=== PATIENT | male | born 1990 ===

== ENCOUNTER 2017-06-03 21:43 | Inpatient (IN) ==
--- NOTE | 2017-06-03 22:26 | Emergency Department Note ---
Arrival - Arrival Chief Complaint: Non-Specific Stated Complaint: liver failure ED Nursing Triage Note: per [facility] pt is in liver failure from alcohol. pt presents with severe jaundice Mode of Arrival: Stretcher Limitations: No Limitations Source: Patient Time Seen by Provider: 06/03/17 22:21 - History of Present Illness HPI Narrative: Patient presents on transfer from [facility] where he presented with 3 weeks of itching and jaundice. Patient states he drinks 2 cases of beer a day with his last drink Wednesday and denies a history of alcoholic liver disease. At [place] he presented with markedly abnormal liver function studies as expected and on CT evidence of ascites but no other significant finding. As concerns the patient is most pressing complaint is his itching and states that despite turning yellow 3 weeks ago he continued his heavy drinking. At the moment he is alert and oriented 3 and in no acute medical distress Onset (ago): week(s) Review of System - Review of System 12 point system: reviewed and no additional remarkable complaints except as stated - Review of System Constitutional: Present: as per HPI Gastrointestinal: Present: as per HPI Medical,Surgical,& Family Hx - Medical History Gastrointestinal: History of: Liver Problems (liver failure) - Social History Smoking Status: Current every day smoker Frequency of Alcohol Use: Frequently Type of Drug Use: None Exam Physical Examination: GENERAL: Well developed, well nourished male in no acute distress. HEENT: Normocephalic. No trauma. Moist mucous membranes. EOMI. PERRLA. Scleral icterus noted ENT NML NECK: Supple. No adenopathy. CARDIAC: Regular. No murmurs. Heart rate 77 CHEST: Clear to auscultation. No respiratory distress. O2 sat 100 ABDOMEN: Soft. Nontender with palpable liver edge 2 fingerbreadths below the right costal margin and palpable fluid wave. Active bowel sounds. EXTREMITIES: No trauma. Normal ROM. No pedal edema. SKIN: No diaphoresis. No rash. Jaundiced NEURO: Alert. Oriented 3. Motor, sensory, vibratory intact. No asterixis. No focal deficits. Vital Signs: Vital Signs Temperature 97.7 F 06/03/17 21:52 Pulse Rate 77 06/03/17 21:52 Respiratory Rate 18 06/03/17 21:59 Blood Pressure 129/85 06/03/17 21:52 O2 Sat by Pulse Oximetry 100 06/03/17 21:52 Course - Reevaluation(s) Reevaluation #1: Patient advised of need for admission - Consultations Consultation #1: Discussed with hospitalist service who will admit for further evaluation treatment. Results - Labs CBC & BMP: 06/03/17 22:56 06/03/17 22:56 Labs: Lab per Cristy: White blood cell count 7200, hematocrit 38, creatinine 0.8, BUN 8, sodium 136, potassium 3.2, bilirubin 20, alkaline phosphatase 443, SGOT 59, SGPT 73, glucose 85, amylase 55 I have reviewed the laboratory noted from our lab the elevated lipase, bilirubin , and alkaline phosphatase. Disposition Clinical Impression: Alcoholic hepatitis, Ascites, Chronic alcoholism, Pancreatitis Case discussed with: patient Disposition: Still a Patient Condition: Guarded Time of Disposition: 02:02
[2017-06-03 23:22] LABS: Basophils # 0.1 10*3/uL (0.0-0.2); Basophils % 0.7 % (0.0-0.8); Eosinophils # 0.2 10*3/uL (0.0-0.87); Eosinophils % 2.1 % (0.00-10.9); Hematocrit 35.5 VOL% (42.0-52.0); Immature Granulocytes % 2.5 %; Immature Granulocytes Absolute 0.22 #; Lymphocytes # 1.2 10*3/uL (1.4-4.0); Lymphocytes % 13.4 % (21.2-54.2); Mean Corpuscular HGB Conc 33.8 GM/DL (32-36); Mean Corpuscular Hemoglobin 31 PG (27-34); Mean Platelet Volume 10.7 FL (9.6-12.0); Monocytes % 11.2 % (1.7-12.7); Neutrophils # 6.3 10*3/uL (1.4-7.4); Neutrophils % 70.1 % (38.7-73.9); Platelet Count 359 T/CUMM (130-400); Red Cell Distribution Width 19.1 % (9.3-17.3)
[2017-06-03 23:25] LABS: Apearance,Urine Slightly Hazy (Clear); Bacteria,Urine Occasional /HPF (Few); Bilirubin,Urine Moderate mg/dL (Negative); Blood, Urine Negative (Negative); Glucose,Urine (UA) Negative (Negative); Ketones,Urine Negative (Negative); Mucus,Urine Occasional /LPF (Occasional); Nitrite,Urine Negative (Negative); Protein,Urine Negative; RBC,Urine 1 /HPF (0-4); Urine Color Amber (Yellow); Urine Specific Gravity 1.019 (1.001-1.035); WBC,Urine 2 /HPF (0-6)
[2017-06-03 23:29] LABS: Barbiturates Screen,Urine Negative (Negative); Benzodiazepines Screen,Urine Negative (Negative); Cannabinoid Screen,Urine Positive (Negative); Opiate Screen,Urine Negative (Negative); Phencyclidine Screen,Urine Negative (Negative)
[2017-06-03 23:31] LABS: INR 1.3; PT Patient Result 13.8 SECS
[2017-06-03 23:39] LABS: Alanine Aminotransferase 55 U/L (16-61); Albumin 2.7 G/DL (3.4-5.0); Alkaline Phosphatase 456 U/L (45-117); Aspartate Amino Transferase 62 U/L (0-37); Blood Urea Nitrogen 7 MG/DL (7-18); Calcium 9.1 MG/DL (8.5-10.1); Glucose 95 MG/DL (74-106); Osmolality,Calculated 272.7 MOS/KG (273-304); Potassium 3.3 MMOL/L (3.5-5.1); Sodium 138 MMOL/L (136-145); Total Protein 6.8 G/DL (6.4-8.3)
[2017-06-03 23:41] LABS: Troponin I Only < 0.015 NG/ML (0.00-0.045)
[2017-06-03 23:43] LABS: Ammonia < 10 UMOL/L (11-32)
[2017-06-04] MEDS ORDERED: chlordiazePOXIDE 25 MG CAPSULE PO PRN (03:07)
[2017-06-04] MEDS ORDERED: SODIUM CHLORIDE 0.9% 1,000 ML IV SCH (03:30)
--- NOTE | 2017-06-04 03:39 | Hospitalist History & Physical ---
Assessment and Plan (1) Alcoholic hepatitis with ascites Status: Acute Current Visit: Yes (2) History of ETOH abuse Status: Chronic Current Visit: Yes (3) Hyperbilirubinemia Status: Acute Current Visit: Yes (4) Hypokalemia Status: Acute Assessment and plan: Plan: 1. NPO. and GI consult in am for liver failure work up. Limit IV fluids. Daily weights.Liver enzymes as well as lipase elevated. Reassess labs in am. Follow up on CT report. Paracentisis as needed. 2. ETOH and tobacco abuse cessation education provided. ETOH withdawal protocal ordered. Thiamin, Folate, and Multivitamin added. 3. Potassium protocal and reassess labs in am. 4. SCD's for DVT px. Holding anticoagulation 2 to liver failure and possible procedure. Protonix for PUD px. Current Visit: Yes History of Present Illness Chief complaint: "itching" History of present illness: Mr. Young is 26-year-old male with past medical history significant for EtOH abuse , that presented to [facility] complaining of itching and jaundice over the last 3 weeks. He was transferred to [facility] for higher level of care for markedly abnormal liver function and abnormal CT scan with ascites. Patient states that he has been drinking 2-3 cases of beer for many years and quit abruptly Wednesday because he moved back in with his significant other. Associated symptoms included itching increasing fluid in his abdomen, and jaundice eyes and skin. The patient denied shortness of breath , chest pain, abdominal pain, maxime colored stools, loose stools, melena. He denies any symptoms of ETOH withdrawal. CT scan of the abdomen results pending. Lab results revealed a T bili of 20, alkaline phosphatase 443, SGOT of 59 SGPT 73, lipase of 449, INR 1.36 hemoglobin 12 hematocrit 38.9 and a potassium of 2-3.2 creatinine 0.6 glucose was 85. He was [facility]. Home Medications Medication Instructions Recorded Confirmed Type No Known Home Medications [No 06/04/17 06/04/17 History Known Home Medications] Medical,Surgical,& Family Hx - Medical History Psychological: History of: Psychiatric/Substance Abuse Tx (hx of ETOH, Tobacco abuse. ) Gastrointestinal: History of: Liver Problems (liver failure) Hematology: No history of: Anemia, Clotting Problems Other: No history of: Anaphylaxis - Surgical History Surgical History: noncontributory - Family History Family History: Reports;: Family Hypertension - Social History Smoking Status: Current every day smoker Have you smoked in the last 12 months: Yes Time spent discussing smoking cessation with patient: 3 to 10 minutes Frequency of Alcohol Use: Frequently (Quit wednesday hx of drinking 2-3 cases of beer a day every day for years.) Type of Drug Use: None Lives With:: Children Functional capacity: independent ambulation - Constitutional Constitutional: Present: weight gain - Cardiovascular Cardiovascular: Present: edema. Absent: chest pain at rest, dyspnea, dyspnea on exertion - Respiratory Respiratory: Absent: dyspnea - Gastrointestinal Gastrointestinal: Present: bloating, jaundice. Absent: heartburn, hematemesis, hematochezia, loose stools, melena, nausea - Genitourinary Genitourinary: Present: as per HPI. Absent: difficulty urinating - Musculoskeletal Musculoskeletal: Present: as per HPI - Neurological Neurological: Absent: as per HPI, confusion, dizziness, numbness - Psychiatric Psychiatric: Absent: auditory hallucinations, visual hallucinations - Endocrine Endocrine: Present: fatigue - Hematologic/Lymphatic Hematologic/Lymphatic: Absent: easy bleeding, easy bruising Exam - Constitutional Vitals: Period Temp Pulse Resp BP Sys/Prajapati Pulse Ox Last 24 Hr 97.7 F-97.7 F 77-77 18-18 129-129/85-85 100 General appearance: normal weight - Head Head exam: Present: normocephalic, atraumatic - Eye Eye exam: Present: EOMI, scleral icterus Pupils: Present: YULIANA, normal accommodation - ENT ENT exam: Present: normal exam - Neck Neck exam: Present: normal inspection - Respiratory Respiratory exam: Present: clear to auscultation bilaterally - Cardiovascular Cardiovascular exam: Present: regular rate and rhythm - GI/Abdominal GI/Abdominal exam: Present: normal bowel sounds, ascites, other (fluid wave) - Extremities Exam Extremities exam: Present: normal capillary refill, full ROM, edema (mild lower extremity edema. ) Results - Labs CBC & BMP: 06/03/17 22:56 06/03/17 22:56 Quality Measures - VTE Contraindication to Pharmacological VTE Prophylaxis: High Risk of Bleeding
[2017-06-04 06:31] LABS: Apearance,Urine CLEAR (Clear); Bilirubin,Urine Moderate mg/dL (Negative); Blood, Urine Negative (Negative); Glucose,Urine (UA) Negative (Negative); Ketones,Urine Negative (Negative); Mucus,Urine Occasional /LPF (Occasional); Nitrite,Urine Negative (Negative); Protein,Urine Negative; RBC,Urine <1 /HPF (0-4); Squamous Epithelial Cell,Urine Occasional /HPF (0-10); Urine Color Amber (Yellow); Urine Specific Gravity 1.034 (1.001-1.035); WBC,Urine 1 /HPF (0-6)
[2017-06-04] MEDS: POTASSIUM CHLORIDE RIDER 10 MEQ in PREMIX 1 EACH IV PRN ×2 (06:57→09:05)
[2017-06-04 07:49] LABS: Basophils # 0.1 10*3/uL (0.0-0.2); Basophils % 0.6 % (0.0-0.8); Eosinophils # 0.3 10*3/uL (0.0-0.87); Eosinophils % 3.4 % (0.00-10.9); Hematocrit 33.1 VOL% (42.0-52.0); Hemoglobin 11.6 GM/DL (14.0-18.0); Immature Granulocytes % 2.3 %; Immature Granulocytes Absolute 0.18 #; Lymphocytes # 1.2 10*3/uL (1.4-4.0); Mean Corpuscular Hemoglobin 31 PG (27-34); Mean Corpuscular Volume 89.7 FL (87-102); Mean Platelet Volume 10.4 FL (9.6-12.0); Monocytes % 13.2 % (1.7-12.7); Neutrophils # 5.2 10*3/uL (1.4-7.4); Neutrophils % 65.5 % (38.7-73.9); Platelet Count 343 T/CUMM (130-400); Red Blood Count 3.69 MC/CUMM (3.8-5.5); Red Cell Distribution Width 18.6 % (9.3-17.3); White Blood Count 7.9 T/CUMM (4-12)
--- NOTE | 2017-06-04 07:57 | CT Report ---
CT abdomen pelvis Indication: Painless jaundice Comparison: 07 April 2017 Technique: Axial CT imaging of the abdomen and pelvis is performed with intravenous contrast. Contrast dose is 100 cc of Omnipaque 350. Findings: Cardiac and lung bases are within normal limits CT abdomen: There is severely distended the biliary ducts both intra and extrahepatic extending all the way to the ampulla. No distinct pancreatic mass is identified at this location. Pancreas otherwise appears normal and no pancreatic duct dilation is seen. The spleen and adrenal glands are normal in size and enhancement. No evidence of focal lesion is demonstrated in these solid organs. Kidneys are normal in size and enhancement. No evidence of hydronephrosis or nephrolithiasis is seen. The bowel caliber is normal and no wall thickening or adjacent inflammatory change is seen. No evidence of free fluid or free air is present. CT pelvis: The pelvic bowel appears within normal limits. Bladder shows no evidence of abnormality. The pelvic organs show no evidence of abnormality Impression: Severely distended the intrahepatic and extrahepatic biliary ducts extending to ampulla. No distinct lesion is seen and could indicate occult malignancy, stricture versus nonradiopaque calculus. This CT exam was performed using one or more the following dose reduction techniques: Automated exposure control, adjustment of the MA and/or KV according to patient size, or use of iterative reconstruction technique. PROCEDURE INTERPRETED AT [facility] DEPARTMENT OF RADIOLOGY Final Report Signed by: Dr. Martell Hendricks
[2017-06-04 08:30] LABS: Albumin 2.4 G/DL (3.4-5.0); Calcium 9.5 MG/DL (8.5-10.1); Potassium 3.6 MMOL/L (3.5-5.1); Total Protein 6.4 G/DL (6.4-8.3)
[2017-06-04 08:34] LABS: Bilirubin,Total 17.8 MG/DL (0.2-1.0)
[2017-06-04 08:40] LABS: Folate 7.6 NG/ML (5.4-24.0)
[2017-06-04] MEDS ORDERED: FOLIC ACID 1 MG TABLET PO SCH (09:00)
[2017-06-04] MEDS ORDERED: MULTIVITAMIN (CENTRUM) TABLET PO SCH (09:00)
[2017-06-04] MEDS ORDERED: THIAMINE 100 MG TABLET PO SCH (09:00)
[2017-06-04] MEDS ORDERED: PANTOPRAZOLE 40 MG TABLET PO SCH (09:00)
--- NOTE | 2017-06-04 10:01 | Gastrointestinal Consult Note ---
Assessment and Plan (1) Hyperbilirubinemia Status: Acute Assessment and plan: 06/04-1 month history of itching and jaundice with long-term history of heavy alcohol use daily with findings of elevated bilirubin and transaminases as well as CT findings of ductal dilatation noted as below. MRCP is pending for this morning. Plan an addendum to follow Dr. Fulton. Current Visit: Yes History of Present Illness Chief complaint: Elevated bilirubin History of present illness: Mr. Young is a 26 year old male who was admitted to the hospital from [facility] after presenting at the clinic with itching. Patient is not a very good historian therefore information is also obtained from chart review. Patient states that over the last month he had onset of itching and yellowing of his skin and eyes which is worsened. He presented to the [facility] for evaluation and at that time he was found to have an elevated bilirubin and transaminases and was referred to our facility for further evaluation. Patient states that he has a long-term history of heavy alcohol use. Patient is very vague regarding the amount of alcohol he drinks on a daily basis however states it is possibly 2-3 cases a day of beer. He states that he also uses tobacco products. Patient states that basically he drinks as many beers as he can on a daily basis until he "passes out". He states he is done this since his early teenage years. Patient denies any abdominal pain, nausea or vomiting. He denies any other associated symptoms. On admission, he had a CT of the abdomen with contrast which showed severely distended intrahepatic and extrahepatic biliary ducts extending to the ampulla with no distinct lesion or mass seen. Bilirubin was noted to be elevated at 19.5 with an AST of 62 and alkaline phosphatase of 456. Ammonia levels were less than 10. Lipase on admission was 449 which is now trended down to 347. He has normal vitamin B12 and folate levels. He was noted to be positive for marijuana on his urine drug screen. Albumin is at 2.7. H&H is 33. INR 1.3. He does not recall being told in the past that he has problems with his liver. Home Medications Medication Instructions Recorded Confirmed Type No Known Home Medications [No 06/04/17 06/04/17 History Known Home Medications] Allergies Allergy/AdvReac Type Severity Reaction Status Date / Time No Known Allergies Allergy Verified 06/04/17 04:27 Medical,Surgical,& Family Hx - Medical History Psychological: History of: Psychiatric/Substance Abuse Tx (hx of ETOH, Tobacco abuse. ) Gastrointestinal: History of: GERD, Liver Problems (liver failure) Hematology: No history of: Anemia, Clotting Problems Other: No history of: Anaphylaxis - Family History Family History: Reports;: Family Hypertension - Social History Smoking Status: Current every day smoker Frequency of Alcohol Use: Frequently Type of Drug Use: None 12 point system: reviewed and no additional remarkable complaints except as stated - Constitutional Constitutional: Present: as per HPI - EENT Eyes: Present: as per HPI Ears: Present: as per HPI Nose, mouth and throat: Present: as per HPI - Cardiovascular Cardiovascular: Present: as per HPI - Respiratory Respiratory: Present: as per HPI - Gastrointestinal Gastrointestinal: Present: as per HPI, jaundice - Genitourinary Genitourinary: Present: as per HPI - Musculoskeletal Musculoskeletal: Present: as per HPI - Neurological Neurological: Present: as per HPI - Psychiatric Psychiatric: Present: as per HPI - Endocrine Endocrine: Present: as per HPI - Hematologic/Lymphatic Hematologic/Lymphatic: Present: as per HPI Exam - Constitutional Vitals: Period Temp Pulse Resp BP Sys/Prajapati Pulse Ox Last 24 Hr 97.2 F-97.7 F 77-115 18-20 122-130/68-85 98-100 General appearance: normal weight, no acute distress - Head Head exam: Present: normal inspection, normocephalic - Eye Eye exam: Present: scleral icterus, other (Lids and identified unremarkable) - ENT ENT exam: Present: normal exam, normal oropharynx - Neck Neck exam: Present: normal inspection - Respiratory Respiratory exam: Present: clear to auscultation bilaterally. Absent: rales, rhonchi, wheezes - Cardiovascular Cardiovascular exam: Present: regular rate and rhythm. Absent: diastolic murmur , JVD, systolic murmur - GI/Abdominal GI/Abdominal exam: Present: normal bowel sounds, soft. Absent: ascites, distended, mass, organomegaly, tenderness - Extremities Exam Extremities exam: Present: normal inspection, full ROM - Back Exam Back exam: Present: normal inspection - Neurological Exam Neurological exam: Present: alert, oriented X3 - Psychiatric Psychiatric exam: Present: flat affect - Skin Skin exam: Present: other (Jaundice) Results - Labs CBC & BMP: 06/04/17 07:37 06/04/17 07:37 Lab Results: I have reviewed the past 24 hour labs - Diagnostic Findings Procedure: CT Abdomen and Pelvis: report reviewed by me Quality Measures - VTE Contraindication to Pharmacological VTE Prophylaxis: High Risk of Bleeding
--- NOTE | 2017-06-04 13:46 | Magnetic Resonance Report ---
Exam: Magnetic resonance cholangiopancreatography Exam date: June 04, 2017 at 1312 hours Indication: Abdominal pain, ductal dilatation Comparison: MR abdomen dated March 25, 2017 at 1010 hours Technique: Multiplanar, multisequence magnetic resonance images of the abdomen were performed without the use of intravenous contrast. Findings: The liver, spleen, pancreas, bilateral adrenal glands and kidneys appear grossly unremarkable in size, appearance and signal. Visualized portions of bowel are within normal limits. Marrow signal throughout the visualized spine is within normal limits. Gallbladder is surgically absent. Marked dilatation of the intra and extrahepatic ducts with tortuosity proximally at the confluence. Multiple intraluminal filling defects within the intra and extrahepatic ducts. 1.1 cm stone distally at the ampulla Impression: Obstructing choledocholithiasis PROCEDURE INTERPRETED AT [facility] DEPARTMENT OF RADIOLOGY Final Report Signed by: Jeff Burton
[2017-06-04] MEDS ORDERED: LORazepam 2 MG/1 ML VIAL IV PRN (15:10)
[2017-06-04] MEDS: LEVOFLOXACIN INJ 500 MG in PREMIX 1 EACH IV SCH (16:54)
[2017-06-04] MEDS: diphenhydrAMINE CAP 25 MG CAPSULE PO PRN (16:55)
[2017-06-05 06:28] LABS: Basophils # 0.1 10*3/uL (0.0-0.2); Basophils % 0.6 % (0.0-0.8); Eosinophils # 0.3 10*3/uL (0.0-0.87); Hemoglobin 11.4 GM/DL (14.0-18.0); Immature Granulocytes % 2.9 %; Immature Granulocytes Absolute 0.23 #; Lymphocytes # 1.1 10*3/uL (1.4-4.0); Lymphocytes % 14.3 % (21.2-54.2); Mean Corpuscular HGB Conc 33.5 GM/DL (32-36); Mean Corpuscular Hemoglobin 31 PG (27-34); Mean Corpuscular Volume 91.6 FL (87-102); Mean Platelet Volume 11.1 FL (9.6-12.0); Monocytes # 1.1 10*3/uL (0.11-0.8); Monocytes % 13.2 % (1.7-12.7); Neutrophils # 5.2 10*3/uL (1.4-7.4); Platelet Count 367 T/CUMM (130-400); Red Blood Count 3.71 MC/CUMM (3.8-5.5); Red Cell Distribution Width 18.4 % (9.3-17.3)
[2017-06-05 07:01] LABS: Albumin 2.3 G/DL (3.4-5.0); Calcium 9.2 MG/DL (8.5-10.1); Potassium 3.5 MMOL/L (3.5-5.1); Total Protein 6.2 G/DL (6.4-8.3)
[2017-06-05 07:04] LABS: Bilirubin,Total 18.3 MG/DL (0.2-1.0)
[2017-06-05] MEDS ORDERED: FOLIC ACID 5 MG/1 ML VIAL IV SCH (09:00)
[2017-06-05] MEDS: PANTOPRAZOLE 40 MG VIAL IV SCH (09:07)
[2017-06-05] MEDS: THIAMINE 200 MG/2 ML VIAL IV SCH (09:08)
[2017-06-05] MEDS: FOLIC ACID INJ 1 MG in SYRINGE 1 EACH IV SCH (10:55)
--- NOTE | 2017-06-05 11:22 | General Surgery Consult Note ---
Assessment and Plan (1) Cholelithiasis with choledocholithiasis Status: Acute Assessment and plan: This patient will be best served with ERCP before any operative intervention on his gallbladder. It looks like diffuse dilation of his bile duct on the MRI and there is no abarrent junction of his bile duct and his pancreatic duct but can be seen with choledochal cyst. There is also no focal area of dilation this suggests choledochal cyst on the MRI MRCP. It certainly seems like routine choledocholithiasis but this patient is very young to have such advanced disease. We will see what the bile duct looks like on the ERCP but hopefully this is straightforward cholelithiasis and choledocholithiasis and if so will be treated with ERCP followed by interval laparoscopic cholecystectomy. Current Visit: Yes History of Present Illness Chief complaint: Painless jaundice History of present illness: Mr. Young is a 26 year old male who is a very poor historian and gives me very little history admitted with painless jaundice and found to have choledocholithiasis and cholelithiasis on his MRI MRCP. Very little is obtained from talking to the patient and he stares blankly at the wall and asking questions. Home Medications Medication Instructions Recorded Confirmed Type No Known Home Medications [No 06/04/17 06/04/17 History Known Home Medications] Allergies Allergy/AdvReac Type Severity Reaction Status Date / Time No Known Allergies Allergy Verified 06/04/17 04:27 Medical,Surgical,& Family Hx - Medical History Psychological: History of: Psychiatric/Substance Abuse Tx (hx of ETOH, Tobacco abuse. ) Gastrointestinal: History of: GERD, Liver Problems (liver failure) Hematology: No history of: Anemia, Clotting Problems Other: No history of: Anaphylaxis - Family History Family History: Reports;: Family Hypertension - Social History Smoking Status: Current every day smoker Frequency of Alcohol Use: Frequently Type of Drug Use: None - Constitutional Constitutional: Present: as per HPI - EENT Nose, mouth and throat: Present: as per HPI - Cardiovascular Cardiovascular: Present: as per HPI - Respiratory Respiratory: Present: as per HPI - Gastrointestinal Gastrointestinal: Present: as per HPI - Genitourinary Genitourinary: Present: as per HPI - Musculoskeletal Musculoskeletal: Present: as per HPI - Neurological Neurological: Present: as per HPI - Endocrine Endocrine: Present: as per HPI Hematologic/Lymphatic: Present: as per HPI Exam - Constitutional Vitals: Period Temp Pulse Resp BP Sys/Prajapati Pulse Ox Last 24 Hr 97.0 F-98.0 F 69-93 12-20 112-119/53-70 95-100 General appearance: normal weight, no acute distress - Head Head exam: Present: normal inspection, normocephalic - Eye Eye exam: Present: EOMI, scleral icterus - ENT ENT exam: Present: normal exam Mouth exam: Present: normal external inspection, normal voice - Neck Neck exam: Present: normal inspection, trachea midline - Respiratory Respiratory exam: Present: clear to auscultation bilaterally. Absent: accessory muscle use, chest wall tenderness - Cardiovascular Cardiovascular exam: Present: RRR. Absent: systolic murmur, tachycardia - GI/Abdominal GI/Abdominal exam: Present: normal bowel sounds, soft. Absent: tenderness, rebound - Extremities Exam Extremities exam: Present: normal inspection, normal capillary refill - Back Exam Back exam: Present: normal inspection - Neurological Exam Neurological exam: Present: alert Speech: Present: normal - Skin Skin exam: Present: normal color, warm Quality Measures - VTE Contraindication to Pharmacological VTE Prophylaxis: High Risk of Bleeding Results - Labs CBC & BMP: 06/05/17 05:31 06/05/17 05:31 - Diagnostic Findings Procedure: CT Abdomen and Pelvis: image reviewed by me, report reviewed by me, MRI: image reviewed by me, report reviewed by me (Multiple common bile duct stone) Specialty Discharge - Follow Up or Referrals
--- NOTE | 2017-06-05 13:02 | Event Note ---
Chief complaint abdominal pain Patient is hemodynamically stable and appears comfortable today. MRI was reviewed and findings are suspicious for choledocholithiasis and cholelithiasis. He is afebrile at this point and appears comfortable but will plan ERCP on Wednesday. Dr. Matt is seen him and plans cholecystectomy to follow. Continue Levaquin to reduce the risk of cholangitis. There is no evidence of DTs or alcohol withdrawal at this time. Review of systems he denies any shortness of breath or chest pain On exam: Vital signs are stable Lids conjunctiva is unremarkable Oropharynx is benign Lungs clear to auscultation no respiratory distress Heart regular rate and rhythm no murmur no edema Abdomen is soft nondistended nontender no masses no hepatosplenomegaly Extremities no clubbing cyanosis or edema all 4 extremities. Recommendations: 1. Continue IV Levaquin analgesia as required plan ERCP with possible sphincterotomy on Wednesday. Continue to be aware of possible DTs alcohol withdrawal with his history of alcohol intake.
--- NOTE | 2017-06-05 16:44 | Hospitalist Progress Note ---
Hospitalist: Subjective Interval history: Patient has no complaints. He denies any belly pain, n/v. Exam - Constitutional Vitals: Period Temp Pulse Resp BP Sys/Prajapati Pulse Ox Last 24 Hr 97.0 F-98.0 F 69-75 17-20 112-119/53-71 98-100 General appearance: no acute distress, over weight - Head Head exam: Present: normal inspection - Eye Eye exam: Present: EOMI, scleral icterus Pupils: Present: YULIANA - ENT ENT exam: Present: normal exam - Neck Neck exam: Present: normal inspection - Respiratory Respiratory exam: Present: clear to auscultation bilaterally. Absent: rales, rhonchi, wheezes - Cardiovascular Cardiovascular exam: Present: regular rate and rhythm - GI/Abdominal GI/Abdominal exam: Present: normal bowel sounds, soft. Absent: tenderness - Extremities Exam Extremities exam: Absent: edema (excoriations from scratching) - Neurological Exam Neurological exam: Present: alert, oriented X3 - Psychiatric Psychiatric exam: Present: normal affect, normal mood - Skin Skin exam: Present: other (jaundice) Results - Labs CBC & BMP: 06/05/17 05:31 06/05/17 05:31 - Impressions Active Issues: 1. Acute abdominal pain, improving 2. Obstructive Jaundice 3. Cholelithiasis with choledocholithiasis 4. Elevated LFTs, cholestatic pattern 5. h/o ETOH dependence, no s/s of acute withdrawals 6. h/o tobacco use: counselled 7. Pruritis Plan: continue current care; being followed by GI and surgery. Noted plan for ERCP with possible sphincteromy on Wednesday, then cholecystectomy. Continue levaquin. [place] for pruritis Quality Measures - VTE Contraindication to Pharmacological VTE Prophylaxis: High Risk of Bleeding Specialty Discharge - Follow Up or Referrals
[2017-06-05] MEDS: LEVOFLOXACIN INJ 500 MG in PREMIX 1 EACH IV SCH (18:20)
[2017-06-06 06:22] LABS: Basophils # 0.1 10*3/uL (0.0-0.2); Basophils % 1.1 % (0.0-0.8); Eosinophils # 0.2 10*3/uL (0.0-0.87); Eosinophils % 3.3 % (0.00-10.9); Hematocrit 33.8 VOL% (42.0-52.0); Hemoglobin 11.6 GM/DL (14.0-18.0); Immature Granulocytes % 2.4 %; Immature Granulocytes Absolute 0.17 #; Lymphocytes % 14.6 % (21.2-54.2); Mean Corpuscular HGB Conc 34.3 GM/DL (32-36); Mean Corpuscular Hemoglobin 31 PG (27-34); Mean Corpuscular Volume 90.4 FL (87-102); Mean Platelet Volume 11.3 FL (9.6-12.0); Monocytes # 0.8 10*3/uL (0.11-0.8); Neutrophils # 4.7 10*3/uL (1.4-7.4); Neutrophils % 66.6 % (38.7-73.9); Platelet Count 394 T/CUMM (130-400); Red Blood Count 3.74 MC/CUMM (3.8-5.5); Red Cell Distribution Width 18.1 % (9.3-17.3)
[2017-06-06 06:57] LABS: Albumin 2.2 G/DL (3.4-5.0); Calcium 9.6 MG/DL (8.5-10.1); Potassium 3.5 MMOL/L (3.5-5.1)
[2017-06-06 07:14] LABS: Bilirubin,Total 17.4 MG/DL (0.2-1.0)
[2017-06-06] MEDS: THIAMINE 200 MG/2 ML VIAL IV SCH (09:03)
[2017-06-06] MEDS: CHOLESTYRAMINE 4 GM PACK PO SCH (09:03)
[2017-06-06] MEDS: PANTOPRAZOLE 40 MG VIAL IV SCH (09:03)
[2017-06-06] MEDS: FOLIC ACID INJ 1 MG in SYRINGE 1 EACH IV SCH (09:04)
--- NOTE | 2017-06-06 10:55 | Hospitalist Progress Note ---
Assessment and Plan (1) Jaundice Status: Acute Assessment and plan: Continue workup with ERCP Current Visit: Yes (2) Alcoholic hepatitis with ascites Status: Acute Current Visit: Yes (3) History of ETOH abuse Status: Chronic Assessment and plan: Watch for DT withdrawal symptoms. Current Visit: Yes (4) Hyperbilirubinemia Status: Acute Current Visit: Yes Hospitalist: Subjective Interval history: Patient sent up in chair resting comfortably. He denies any pain no abdominal pain no shortness of breath or chest pain. Remains jaundice. He is scheduled for ERCP on Wednesday. He has been hemodynamically stable and has been metabolically stable Exam - Constitutional Vitals: Period Temp Pulse Resp BP Sys/Prajapati Pulse Ox Last 24 Hr 97.0 F-98.2 F 64-76 17-18 111-120/59-86 100-100 General appearance: normal weight - Head Head exam: Present: normal inspection - Eye Eye exam: Present: scleral icterus Pupils: Present: YULIANA - Neck Neck exam: Present: normal inspection - Respiratory Respiratory exam: Present: clear to auscultation bilaterally - Cardiovascular Cardiovascular exam: Present: regular rate and rhythm - GI/Abdominal GI/Abdominal exam: Present: normal bowel sounds - Extremities Exam Extremities exam: Present: normal inspection - Neurological Exam Neurological exam: Present: alert, oriented X3 - Psychiatric Psychiatric exam: Present: normal affect - Skin Skin exam: Present: other (Jaundice) Results - Labs CBC & BMP: 06/06/17 05:28 06/06/17 05:28 Quality Measures - VTE Contraindication to Pharmacological VTE Prophylaxis: High Risk of Bleeding Specialty Discharge - Follow Up or Referrals
--- NOTE | 2017-06-06 11:23 | General Surgery Progress Note ---
Assessment and Plan (1) Cholelithiasis with choledocholithiasis Status: Acute Assessment and plan: ERCP scheduled for tomorrow. Laparoscopic cholecystectomy will be done following ERCP Current Visit: Yes Subjective Patient reports: Present: no new complaints Exam - Constitutional Vitals: Period Temp Pulse Resp BP Sys/Prajapati Pulse Ox Last 24 Hr 97.0 F-98.2 F 64-76 17-18 111-120/59-86 100-100 General appearance: no acute distress, over weight - Head Head exam: Present: normal inspection - Eye Eye exam: Present: EOMI, scleral icterus Pupils: Present: YULIANA - ENT ENT exam: Present: normal exam Mouth exam: Present: normal external inspection, normal voice - Neck Neck exam: Present: normal inspection, trachea midline - Respiratory Respiratory exam: Absent: accessory muscle use, prolonged expiratory phase - Cardiovascular Cardiovascular exam: Absent: irregular rhythm, tachycardia - GI/Abdominal GI/Abdominal exam: Absent: tenderness - Extremities Exam Extremities exam: Present: normal inspection - Neurological Exam Neurological exam: Present: alert Speech: Present: normal - Skin Skin exam: Present: warm Results - Labs CBC & BMP: 06/06/17 05:28 06/06/17 05:28 Quality Measures - VTE Contraindication to Pharmacological VTE Prophylaxis: High Risk of Bleeding Specialty Discharge - Follow Up or Referrals
--- NOTE | 2017-06-06 13:20 | Event Note ---
Chief complaint gallstone pancreatitis and alcoholic pancreatitis Clinically unchanged no complaints of pain today no fever chills. Bilirubin significantly elevated at 17 MRI has been again discussed with him will proceed with ERCP and probable sphincterotomy in a.m. Risks benefits and alternatives have been reviewed. Review of systems denies any shortness of breath or chest pain. On exam he is afebrile vital signs are stable sclerae icteric lids conjunctiva was unremarkable pharynx is benign neck is supple no JVD no thyromegaly or supraclavicular x-ray noted lungs clear to alteration of respiratory distress heart regular rate and rhythm no murmur no edema abdomen is soft mildly tender no rebound or guarding bowel sounds normoactive extremities no clubbing cyanosis or edema. Recommendations proceed with ERCP and suspected sphincterotomy in a.m. with cholecystectomy to follow. No evidence of DTs or alcohol withdrawal so far.
[2017-06-06] MEDS: LEVOFLOXACIN INJ 500 MG in PREMIX 1 EACH IV SCH (17:10)
[2017-06-06] MEDS ORDERED: LORazepam 1 MG TABLET PO SCH (21:00)
[2017-06-06] MEDS: diphenhydrAMINE CAP 25 MG CAPSULE PO PRN (21:26)
[2017-06-07 06:34] LABS: Basophils # 0.1 10*3/uL (0.0-0.2); Eosinophils # 0.3 10*3/uL (0.0-0.87); Eosinophils % 4.2 % (0.00-10.9); Hematocrit 38.6 VOL% (42.0-52.0); Hemoglobin 12.9 GM/DL (14.0-18.0); Immature Granulocytes Absolute 0.23 #; Lymphocytes # 1.5 10*3/uL (1.4-4.0); Lymphocytes % 20.2 % (21.2-54.2); Mean Corpuscular HGB Conc 33.4 GM/DL (32-36); Mean Corpuscular Hemoglobin 31 PG (27-34); Mean Corpuscular Volume 91.9 FL (87-102); Mean Platelet Volume 11.2 FL (9.6-12.0); Monocytes # 0.9 10*3/uL (0.11-0.8); Neutrophils # 4.6 10*3/uL (1.4-7.4); Neutrophils % 59.6 % (38.7-73.9); Platelet Count 449 T/CUMM (130-400); Red Cell Distribution Width 17.8 % (9.3-17.3); White Blood Count 7.6 T/CUMM (4-12)
[2017-06-07 06:50] LABS: INR 1.3; Partial Thromboplastin Time 30.3 SECS (0-40)
[2017-06-07 07:07] LABS: Albumin 2.5 G/DL (3.4-5.0); Calcium 9.9 MG/DL (8.5-10.1); Osmolality,Calculated 275.4 MOS/KG (273-304); Potassium 3.8 MMOL/L (3.5-5.1); Total Protein 6.8 G/DL (6.4-8.3)
[2017-06-07 07:15] LABS: Bilirubin,Total 18.2 MG/DL (0.2-1.0)
--- NOTE | 2017-06-07 07:28 | General Surgery Progress Note ---
Assessment and Plan (1) Cholelithiasis with choledocholithiasis Status: Acute Assessment and plan: ERCP scheduled for today. Laparoscopic cholecystectomy will be done following ERCP Current Visit: Yes Subjective Patient reports: Present: no new complaints Exam - Constitutional Vitals: Period Temp Pulse Resp BP Sys/Prajapati Pulse Ox Last 24 Hr 97.5 F-98.8 F 58-77 17-18 90-118/47-68 95-100 General appearance: no acute distress, over weight - Head Head exam: Present: normal inspection - Eye Eye exam: Present: EOMI, scleral icterus - ENT Mouth exam: Present: normal external inspection, normal voice - Neck Neck exam: Present: normal inspection, trachea midline - Respiratory Respiratory exam: Absent: accessory muscle use, prolonged expiratory phase - Cardiovascular Cardiovascular exam: Absent: tachycardia - Extremities Exam Extremities exam: Present: normal inspection - Neurological Exam Neurological exam: Present: alert Speech: Present: normal Results - Labs CBC & BMP: 06/07/17 05:38 06/07/17 05:38 Quality Measures - VTE Contraindication to Pharmacological VTE Prophylaxis: High Risk of Bleeding Specialty Discharge - Follow Up or Referrals
[2017-06-07] MEDS: CHOLESTYRAMINE 4 GM PACK PO SCH (08:46)
[2017-06-07] MEDS: THIAMINE 200 MG/2 ML VIAL IV SCH (09:41)
[2017-06-07] MEDS: PANTOPRAZOLE 40 MG VIAL IV SCH (09:41)
[2017-06-07] MEDS: FOLIC ACID INJ 1 MG in SYRINGE 1 EACH IV SCH (09:41)
[2017-06-07] MEDS ORDERED: fentaNYL 100 MCG/2 ML VIAL ONE (11:33)
[2017-06-07] MEDS ORDERED: MIDAZOLAM 2 MG/2 ML VIAL ONE (11:33)
[2017-06-07] MEDS ORDERED: ONDANSETRON 4 MG/2 ML VIAL ONE (11:36)
[2017-06-07] MEDS ORDERED: PROPOFOL 200 MG/20 ML VIAL IV ONE (11:36)
--- NOTE | 2017-06-07 12:01 | Operative Note ---
Date of procedure: 06/07/17 Pre-op diagnosis: Choledocholithiasis Procedure: Endoscopic retrograde cholangiopancreatography with sphincterotomy and balloon stone extraction 26-year-old male with MRCP suggestive of choledocholithiasis and cholelithiasis now for ERCP to further evaluate. Informed consent was obtained for the patient He was sedated with general anesthesia per anesthesia protocol. Patient was placed in prone position the Olympus duodenum scope was inserted blindly into the esophagus subsequently advanced under direct vision through the esophagus no clear varices were seen. Stomach was normal. Pylorus was normal ampulla is prominent with suspected impacted stone. The sphincterotome was utilized and we were able to selectively cannulate the common bile duct which revealed distal stones are suspected. There is marked dilatation of the common bile duct common hepatic duct and intrahepatic radicles. The cystic duct appears patent and cholelithiasis was observed. Subsequent was elected to proceed with sphincterotomy and a 10 mm sphincterotomy was performed without difficulty good hemostasis. Subsequent balloon cath was inserted into the biliary tree advanced the region of the aaron hepatis inflated to 12 mm 2 and port of the duodenum with removal of stone fragments. No residual stones were observed for the procedure was terminated. Patient discharge recovery in good condition Postop diagnosis: 1. Choledocholithiasis status post successful ERCP sphincterotomy 2. Cholelithiasis proceed with cholecystectomy per surgery. Anesthesia: none (General) Surgeon / Physician: Atif Fulton Estimated blood loss: none Specimens: none sent Condition: stable Disposition: post procedure unit Results - Labs CBC & BMP: 06/07/17 05:38 06/07/17 05:38 Discharge Plan - Discharge Medications No Action No Known Home Medications [No Known Home Medications] - Follow Up or Referral - Forms/Instructions Instructions: Abuse of Alcohol (DC), Ascites (DC)
--- NOTE | 2017-06-07 12:04 | Hospitalist Progress Note ---
Assessment and Plan (1) History of ETOH abuse Status: Chronic Assessment and plan: 1)alcoholism- no sign of DTs at this time. Use Librium or ativan prn. on folate and thiamine. 2)cholecystitis, choledocholithiasis and cholelithiasis- ERCP with sphincterotomy today then lap dania. 3)hypokalemia- replaced. Current Visit: Yes (2) Alcoholic hepatitis with ascites Status: Acute Current Visit: Yes (3) Hyperbilirubinemia Status: Acute Current Visit: Yes (4) Hypokalemia Status: Acute Current Visit: Yes (5) Cholelithiasis with choledocholithiasis Status: Acute Current Visit: Yes (6) Jaundice Status: Acute Current Visit: Yes Hospitalist: Subjective Interval history: Mr Young did not talk to me much when I interviewed him as he was watching something on his phone. He denied having questions or concerns. Exam - Constitutional Vitals: Period Temp Pulse Resp BP Sys/Prajapati Pulse Ox Last 24 Hr 97.5 F-98.8 F 54-77 17-19 90-121/47-60 95-100 General appearance: no acute distress, over weight - Eye Eye exam: Present: EOMI. Absent: scleral icterus - Respiratory Respiratory exam: Present: clear to auscultation bilaterally - Cardiovascular Cardiovascular exam: Present: regular rate and rhythm - GI/Abdominal GI/Abdominal exam: Present: normal bowel sounds, soft - Extremities Exam Extremities exam: Absent: edema - Neurological Exam Neurological exam: Present: alert, oriented X3 Results - Labs CBC & BMP: 06/07/17 05:38 06/07/17 05:38 Lab Results: I have reviewed the past 24 hour labs Quality Measures - VTE Contraindication to Pharmacological VTE Prophylaxis: High Risk of Bleeding Specialty Discharge - Follow Up or Referrals
--- NOTE | 2017-06-07 12:08 | Anesthesia Post-Op ---
Anesthesia Post OP - Post Ansesthetic Evaluation Patient seen in post op: Yes Resp: within normal limits CV: within normal limits Mental: within normal limits Temp: within normal limits [id number]: within normal limits Nausea and Vomiting: within normal limits Pain: within normal limits
[2017-06-07] MEDS ORDERED: GLUCAGON 1 MG VIAL ONE (12:22)
--- NOTE | 2017-06-07 12:54 | Fluoroscopy Report ---
FL fluoroscopy <1hr Indication: ERCP Comparison: None Technique: 10 intraoperative fluoroscopic images of the abdomen were submitted. Fluoroscopy time 4.3 minutes. Findings: Images submitted during ERCP procedure. Contrast demonstrated within dilated common and intrahepatic ducts. Please see operative report for details. IMPRESSION: As above. PROCEDURE INTERPRETED AT [facility] DEPARTMENT OF RADIOLOGY Final Report Signed by: Dr Jerson Canela
[2017-06-07] MEDS: LEVOFLOXACIN INJ 500 MG in PREMIX 1 EACH IV SCH (17:12)
[2017-06-08] MEDS ORDERED: FAMOTIDINE 20 MG TABLET PO ONE (07:00)
[2017-06-08] MEDS ORDERED: DIAZEPAM 5 MG TABLET PO ONE (07:00)
--- NOTE | 2017-06-08 07:24 | Event Note ---
Events of yesterday noted. Successful ERCP with sphincterotomy. Patient has no evidence of pancreatitis on exam. Plan for laparoscopic versus open cholecystectomy today. I have discussed the risks, benefits, and alternatives of the operation with the patient and his family, and the expected outcomes have been reviewed. In particular, I discussed the risk of bleeding, infection , hernias of the abdominal wall, injury to the intestines or liver, pancreatitis , dropped or retained stones in the abdomen, bile leak, and bile duct injury. The patient's questions have been answered.
[2017-06-08] MEDS: THIAMINE 200 MG/2 ML VIAL IV SCH (09:44)
[2017-06-08] MEDS: PANTOPRAZOLE 40 MG VIAL IV SCH (09:44)
[2017-06-08] MEDS: CHOLESTYRAMINE 4 GM PACK PO SCH (09:46)
[2017-06-08] MEDS ORDERED: LIDOCAINE 2% 5 ML VIAL ONE (10:13)
[2017-06-08] MEDS ORDERED: ONDANSETRON 4 MG/2 ML VIAL ONE (10:13)
[2017-06-08] MEDS ORDERED: PHENYLEPHRINE 50 MG/5 ML VIAL ONE (10:13)
[2017-06-08] MEDS ORDERED: NEOSTIGMINE 10 MG/10 ML VIAL ONE (10:13)
[2017-06-08] MEDS ORDERED: GLYCOPYRROLATE 0.4 MG/2 ML VIAL ONE (10:13)
[2017-06-08] MEDS ORDERED: PROPOFOL 200 MG/20 ML VIAL IV ONE (10:13)
--- NOTE | 2017-06-08 12:20 | Operative Note ---
Date of procedure: 06/08/17 Procedure: Dr. Lazo surgical sales representative note on Lefty Young. Dr. Matt requested consultation assistance on what has turned into an open cholecystectomy following ERCP with extensive choledocholithiasis. I join the case with Dr. Matt as he had partially removed gallbladder we did further exploration of the proximal gallbladder and then did choledochoscopy noting a good clean distal bile common bile duct and entered in through the ampulla through the sphincterotomy there was extensive fibrinous inflammation at the infundibulum of the gallbladder and the aaron hepatis and we elected therefore not to try to do a complete cholecystectomy leaving a small amount of the infundibulum placed a T-tube into this section surgeon in place with 4-0 Vicryl pursestring did completion choledocho or cholangiogram that did not reveal good emptying into the duodenum and filling of the common bile duct, hepatic duct and intrahepatic radicles no retained stones are noted T-tube was then brought out through the anterior abdominal wall trach OG drains drains abdomen is closed. Complete operative note is dictated by Dr. Matt Surgeon / Physician: Neil Lazo Results - Labs CBC & BMP: 06/07/17 05:38 06/07/17 05:38 Discharge Plan - Discharge Medications No Action No Known Home Medications [No Known Home Medications] - Follow Up or Referral Follow Up: Estrada Matt MD [Physician] - - Forms/Instructions Instructions: Laparoscopic Cholecystectomy (DC), Abuse of Alcohol (DC), Ascites (DC)
--- NOTE | 2017-06-08 12:56 | Operative Note ---
Date of procedure: 06/08/17 Pre-op diagnosis: Choledocholithiasis with cholecystitis Post-op diagnosis: same Procedure: Preoperative diagnosis Choledocholithiasis with cholecystitis Postoperative diagnosis Same Procedures performed 1. Laparoscopic converted to open cholecystectomy 2. Open common bile duct exploration with stone removal 3. Intraoperative cholangiogram 22 modifier Findings There is significant steatosis of the liver but no macronodular cirrhosis. The gallbladder was extremely scarred down to the bile duct and the portal triad. I was unable to safely identify the critical view of safety in the gallbladder tore during laparoscopic dissection so I converted to an open procedure. I do not down cholecystectomy was performed and the distal infundibulum of the gallbladder was so adherent to the portal triad and bile duct that it was not safe to proceed further. The gallbladder was opened at a partial cholecystectomy site and several stones lodged in the infundibulum cystic duct junction were removed. A choledocho scope was then driven down through the distal common bile duct and through the sphincterotomy into the duodenum. There were no retained stones seen. I was unable to drive the choledochoscope proximally into the intrahepatic ducts because of the angles created by the scarring. A T-tube was inserted through the cystic duct remnant and cholangiogram was performed after pursestring suture was used to sew it in. There were no obvious filling defects but there were some air bubbles. The T- tube was left in place for postoperative access to the bile duct. The inflammatory changes and scarring of the gallbladder to the portal triad and common hepatic duct made this case take more than twice usual length of time. Complications None apparent Specimen Gallbladder and gallstones Blood loss 100 mL Surgeon Vernell Lazo Indications Choledocholithiasis with cholecystitis status post cystic successful ERCP with sphincterotomy. Description of procedure The patient was taken to the operating room and transferred to the operating table in the supine position. Pressure points were padded and SCDs were placed lower extremities. General endotracheal anesthesia was administered. The abdomen was prepped chlorhexidine and draped sterilely. Preoperative antibiotics were administered, and a timeout was performed. The abdomen was entered in a supraumbilical location of the Veress needle. A 5 mm skin incision was made with an 11 blade scalpel after local anesthetic was administered and the penetrating towel clip was used to grasp the umbilical stalk. Veress needle was used into the peritoneal cavity confirmed by double click technique. Aspiration was negative. Saline drop test confirmed intraperitoneal location. The abdomen was insufflated to 15 mmHg with an initial insufflation pressure of 2 mmHg. The patient became bradycardic and hypotensive after insufflation of the abdomen and the CO2 was released. His bradycardia was treated by the anesthesia team with fluids and medication to reverse his bradycardia and he improved. The pressure was decreased to 12 and he tolerated that well and re-insufflation. Diagnostic laparoscopy revealed no evidence of trocar or Veress needle injury. Under direct visualization, and after local anesthetic was administered, an 11 mm midepigastric trocar and 2 right subcostal 5 mm trochars were placed. The gallbladder was then evaluated. It was acutely inflamed and thickened and it was very small in tripled. The gallbladder was grasped at the fundus with infundibulum was unable be clearly identified. The dissection was started high on the gallbladder and the peritoneum was taken down. The critical view of safety was unable to be obtained due to the scarring of what appeared to be the gallbladder down to the portal triad and bile duct and I felt that further laparoscopic dissection was not possible to be done safely so I converted to an open procedure. The camera was removed and the trochars were removed. The subcostal incisions were connected with a scalpel and electrocautery was used to dissected the anterior abdominal wall. A Bookwalter retractor was placed. Laparotomy pads were placed above the liver to assist with retraction and exposure. A dome down cholecystectomy was then performed. This confirmed suspected anatomy laparoscopically that the infundibulum of the gallbladder was adherent to the portal triad and hepatic duct. A cholecystotomy had been created during dissection laparoscopically and the gallbladder was opened down to this point. At this time I felt that further dissection was too dangerous to justify the benefit. The remaining stones in the gallbladder they were large and the infundibulum were removed. The choledocho scope was then driven through the cystic duct into the bile ducts and distally into the duodenum. No remaining filling defects or stones were seen. I was unable to get the appropriate angle to drive the choledocho scope up into the intrahepatic ducts. For this reason a T-tube was placed through the gallbladder remnant and a partial cholecystectomy was performed leaving less than 1 cm of the distal gallbladder infundibulum. A cholangiogram was performed through the T-tube after a pursestring Vicryl suture was used to close the gallbladder around the T-tube. There were some air bubbles seen but no obvious filling defects. Stab incision was made above the Rigoberto incision in the right upper quadrant and a María clamp was used to deliver the T-tube through the abdominal wall through a separate incision. A #10 OG was also passed through it stab incision inferior to the Rigoberto incision and placed in the gallbladder fossa. The tubes were tied down with 306 nylon sutures. The remainder of the gallbladder down to the T-tube site was removed and sent to pathology along with the stones that were removed. The ET tube was placed to a bile bag on gravity drainage and the OG drain was placed to bulb suction. The Clancy incision was closed in 2 layers with 0 PDS sutures. 2-0 Monocryl suture was used to close Uzma's layer. The skin incisions were closed with skin clips. The patient was then awakened from anesthesia and transferred to recovery after sterile dressings were applied. Postoperative plan Repeat T-tube cholangiogram in 2-3 days. Anesthesia: GETA Surgeon / Physician: Estrada Matt Specimens: other (gallbladder) Condition: stable Disposition: PACU Results - Labs CBC & BMP: 06/07/17 05:38 06/07/17 05:38 Discharge Plan - Discharge Medications No Action No Known Home Medications [No Known Home Medications] - Follow Up or Referral Follow Up: Estrada Matt MD [Physician] - - Forms/Instructions Instructions: Laparoscopic Cholecystectomy (DC), Abuse of Alcohol (DC), Ascites (DC)
--- NOTE | 2017-06-08 13:14 | Fluoroscopy Report ---
FL cholangiogram in surgery Indication: Pain Comparison: None Technique: 3 intraoperative fluoroscopic images of the abdomen. Fluoroscopy time 52 seconds. Findings: Images submitted during intraoperative cholangiogram. Contrast is noted within dilated hepatic and common ducts. Please see operative report for details. IMPRESSION: As above. PROCEDURE INTERPRETED AT [facility] DEPARTMENT OF RADIOLOGY Final Report Signed by: Dr Jerson Canela
[2017-06-08] MEDS ORDERED: ONDANSETRON 4 MG/2 ML VIAL IV PRN (13:18)
[2017-06-08] MEDS: HYDROmorphone 2 MG/1 ML VIAL IV PRN ×3 (13:20→13:46)
--- NOTE | 2017-06-08 14:19 | Anesthesia Post-Op ---
Anesthesia Post OP - Post Ansesthetic Evaluation Patient seen in post op: Yes Resp: within normal limits CV: within normal limits Mental: within normal limits Temp: within normal limits [id number]-[id number]: within normal limits Nausea and Vomiting: within normal limits Pain: within normal limits
[2017-06-08] MEDS ORDERED: NALOXONE 0.4 MG/ML VIAL IV PRN (14:41)
[2017-06-08] MEDS ORDERED: HYDROmorphone PCA 30 MG/30 ML SYRINGE IV SCH (14:41)
[2017-06-08] MEDS: FOLIC ACID INJ 1 MG in SYRINGE 1 EACH IV SCH (14:42)
--- NOTE | 2017-06-08 15:11 | Gastrointestinal Progress Note ---
<Pam García - Last Filed: 06/08/17 15:09> Assessment and Plan (1) Hyperbilirubinemia Status: Acute Assessment and plan: 06/08-postoperative cholecystectomy converted to open procedure as noted below. Repeat LFTs in the morning. Plan and addendum to followed by Dr. Fulton. 06/04-1 month history of itching and jaundice with long-term history of heavy alcohol use daily with findings of elevated bilirubin and transaminases as well as CT findings of ductal dilatation noted as below. MRCP is pending for this morning. Plan an addendum to follow Dr. Fulton. Current Visit: Yes Gastroenterology - PN: Subj Interval history: CC: Abdominal pain Patient is seen, postoperatively, from laparoscopic cholecystectomy which ended up having to be converted to an open procedure with common bile duct exploration and stone removal. Patient is doing well postoperatively with expected postop pain. He is resting comfortably. Denies any nausea or vomiting. Intraoperative cholangiogram noted to show no filling defects or stones. He was noted to have mention of significant steatosis of the liver without macronodular cirrhosis. Abdomen is soft, tender to palpation. No repeat labs were noted for this morning. Will recheck LFTs tomorrow. ROS: Denies shortness of breath or chest pain Exam (Progress Note) - Constitutional Vitals: Period Temp Pulse Resp BP Sys/Prajapati Pulse Ox Last 24 Hr 97.0 F-99.0 F 66-82 16-20 93-132/50-88 95-100 General appearance: normal weight, no acute distress - Head Head exam: Present: normal inspection, normocephalic - Eye Eye exam: Present: other (Lids and conjunctive are unremarkable). Absent: scleral icterus - ENT ENT exam: Present: normal exam, normal oropharynx - Neck Neck exam: Present: normal inspection - Respiratory Respiratory exam: Present: clear to auscultation bilaterally. Absent: rales, rhonchi, wheezes - Cardiovascular Cardiovascular exam: Present: regular rate and rhythm. Absent: diastolic murmur , JVD, systolic murmur - GI/Abdominal GI/Abdominal exam: Present: normal bowel sounds, soft. Absent: ascites, distended, mass, organomegaly, tenderness - Extremities Exam Extremities exam: Present: normal inspection, full ROM - Back Exam Back exam: Present: normal inspection - Neurological Exam Neurological exam: Present: alert, oriented X3 - Psychiatric Psychiatric exam: Present: normal affect, normal mood - Skin Skin exam: Present: normal color, warm, dry Results - Labs CBC & BMP: 06/07/17 05:38 06/07/17 05:38 Lab Results: I have reviewed the past 24 hour labs Specialty Discharge - Follow Up or Referrals Follow up with: Estrada Matt MD [Physician] - <Atif Fulton - Last Filed: 06/08/17 22:20> Exam (Progress Note) - Constitutional Vitals: Period Temp Pulse Resp BP Sys/Prajapati Pulse Ox Last 24 Hr 97.0 F-99.0 F 66-90 16-20 96-132/50-88 95-100 Results - Labs CBC & BMP: 06/07/17 05:38 06/07/17 05:38
--- NOTE | 2017-06-08 15:46 | Hospitalist Progress Note ---
Assessment and Plan (1) History of ETOH abuse Status: Chronic Assessment and plan: 1)alcoholism- no sign of DTs at this time. Use Librium or ativan prn. on folate and thiamine. 2)cholecystitis, choledocholithiasis and cholelithiasis- s/p open cholecystectomy today. 3)hypokalemia- replaced. Current Visit: Yes (2) Alcoholic hepatitis with ascites Status: Acute Current Visit: Yes (3) Hyperbilirubinemia Status: Acute Current Visit: Yes (4) Hypokalemia Status: Acute Current Visit: Yes (5) Cholelithiasis with choledocholithiasis Status: Acute Current Visit: Yes (6) Jaundice Status: Acute Current Visit: Yes Hospitalist: Subjective Interval history: Mr Young is doing well today post op. He is happy he won't have to deal with his gallbladder anymore. Denies nausea and asks for a regular diet. Exam - Constitutional Vitals: Period Temp Pulse Resp BP Sys/Prajapati Pulse Ox Last 24 Hr 97.0 F-99.0 F 66-82 16-20 96-132/50-88 95-100 General appearance: normal weight, no acute distress - Eye Eye exam: Present: EOMI. Absent: scleral icterus - Respiratory Respiratory exam: Present: clear to auscultation bilaterally - Cardiovascular Cardiovascular exam: Present: regular rate and rhythm - GI/Abdominal GI/Abdominal exam: Present: hypoactive bowel sounds, soft - Extremities Exam Extremities exam: Absent: edema Results - Labs CBC & BMP: 06/07/17 05:38 06/07/17 05:38 Lab Results: I have reviewed the past 24 hour labs Quality Measures - VTE Contraindication to Pharmacological VTE Prophylaxis: High Risk of Bleeding Specialty Discharge - Follow Up or Referrals Follow up with: Estrada Matt MD [Physician] -
[2017-06-09 04:27] LABS: Albumin 2.2 G/DL (3.4-5.0); Bilirubin,Direct 11.66 MG/DL (0.0-0.20); Total Protein 5.9 G/DL (6.4-8.3)
[2017-06-09 04:31] LABS: Bilirubin,Indirect 3.4 MG/DL (0.0-1.0); Bilirubin,Total 15.1 MG/DL (0.2-1.0)
[2017-06-09] MEDS ORDERED: HYDROmorphone 2 MG/1 ML VIAL IV PRN (08:00)
--- NOTE | 2017-06-09 08:00 | Event Note ---
General Surgery Progress Note Chief complaint This patient is a 26-year-old man admitted with choledocholithiasis treated with ERCP and sphincterotomy with stone removal followed by laparoscopic converted cystectomy with common bile duct exploration and T-tube placement with intraoperative cholangiogram on 06/08/2017 Interval history Patient did well overnight. He has no output from his T-tube drain. The OG drain is serosanguineous. His pain is well controlled. He is tolerating regular diet. Physical exam Patient is afebrile with normal vital signs Abdominal exam reveals clean dressing. There is some minimal clear mondragon bile coming into the bile bag tubing but nothing in the bile bag itself The OG drain is serosanguineous Abdomen is appropriately tender and there are normal bowel sounds Labs Reviewed, bilirubin improving Imaging None new Assessment and plan We will get a repeat cholangiogram to the T-tube tomorrow and clamp the T-tube if there are no residual filling defects seen. Continue OG drain to bulb suction Diet as tolerated Hep-Lock IV fluids and transition to p.o. pain medicines with as needed IV
[2017-06-09] MEDS: PANTOPRAZOLE 40 MG VIAL IV SCH (08:09)
[2017-06-09] MEDS: CHOLESTYRAMINE 4 GM PACK PO SCH (08:09)
[2017-06-09] MEDS: THIAMINE 200 MG/2 ML VIAL IV SCH (08:09)
[2017-06-09] MEDS: FOLIC ACID INJ 1 MG in SYRINGE 1 EACH IV SCH (08:10)
[2017-06-09 08:37] LABS: Basophils # 0.1 10*3/uL (0.0-0.2); Basophils % 0.6 % (0.0-0.8); Eosinophils # 0.2 10*3/uL (0.0-0.87); Eosinophils % 1.5 % (0.00-10.9); Hematocrit 35.5 VOL% (42.0-52.0); Hemoglobin 11.8 GM/DL (14.0-18.0); Immature Granulocytes % 1.6 %; Lymphocytes # 1.6 10*3/uL (1.4-4.0); Lymphocytes % 13.2 % (21.2-54.2); Mean Corpuscular HGB Conc 33.2 GM/DL (32-36); Mean Corpuscular Hemoglobin 32 PG (27-34); Mean Corpuscular Volume 94.7 FL (87-102); Mean Platelet Volume 10.1 FL (9.6-12.0); Monocytes # 1.1 10*3/uL (0.11-0.8); Monocytes % 8.7 % (1.7-12.7); Neutrophils # 9.1 10*3/uL (1.4-7.4); Neutrophils % 74.4 % (38.7-73.9); Platelet Count 389 T/CUMM (130-400); Red Blood Count 3.75 MC/CUMM (3.8-5.5); White Blood Count 12.2 T/CUMM (4-12)
[2017-06-09 09:15] LABS: Calcium 9.3 MG/DL (8.5-10.1); Potassium 3.7 MMOL/L (3.5-5.1)
[2017-06-09] MEDS: KETOROLAC 30 MG/1 ML VIAL IV SCH ×3 (09:29→21:31)
--- NOTE | 2017-06-09 09:49 | Gastrointestinal Progress Note ---
<Pam García - Last Filed: 06/09/17 09:46> Assessment and Plan (1) Hyperbilirubinemia Status: Acute Assessment and plan: 06/09-bilirubin is down slightly at 15. Tolerating diet present time. Afebrile. Plan an addendum to followed by Dr. Fulton 06/08-postoperative cholecystectomy converted to open procedure as noted below. Repeat LFTs in the morning. Plan and addendum to followed by Dr. Fulton. 06/04-1 month history of itching and jaundice with long-term history of heavy alcohol use daily with findings of elevated bilirubin and transaminases as well as CT findings of ductal dilatation noted as below. MRCP is pending for this morning. Plan an addendum to follow Dr. Fulton. Current Visit: Yes Gastroenterology - PN: Subj Interval history: CC: Choledocholithiasis/elevated bilirubin Patient is seen, awake and alert sitting up in bed. States he had a restful night. He is postop open cholecystectomy with common bile duct respiration. His drains are patent at this time. He is tolerating a diet at present denies any nausea vomiting. He is only complaining of mild postoperative pain with good control from pain medication. At this time no signs of DTs are withdrawal seizures noted. WBCs 12,000. Bilirubin is noted at 15 trending downward with mild elevation in AST. Abdomen is soft, with expected postoperative tenderness. ROS: Denies shortness of breath or chest pain Exam (Progress Note) - Constitutional Vitals: Period Temp Pulse Resp BP Sys/Prajapati Pulse Ox Last 24 Hr 97.0 F-98.4 F 68-97 16-20 96-133/52-88 95-100 General appearance: normal weight, no acute distress - Head Head exam: Present: normal inspection, normocephalic - Eye Eye exam: Present: other (Lids and conjunctivae are unremarkable). Absent: scleral icterus - ENT ENT exam: Present: normal exam, normal oropharynx - Neck Neck exam: Present: normal inspection - Respiratory Respiratory exam: Present: clear to auscultation bilaterally. Absent: rales, rhonchi, wheezes - Cardiovascular Cardiovascular exam: Present: regular rate and rhythm. Absent: diastolic murmur , JVD, systolic murmur - GI/Abdominal GI/Abdominal exam: Present: normal bowel sounds, soft. Absent: ascites, distended, mass, organomegaly, tenderness - Extremities Exam Extremities exam: Present: normal inspection, full ROM - Back Exam Back exam: Present: normal inspection - Neurological Exam Neurological exam: Present: alert, oriented X3 - Psychiatric Psychiatric exam: Present: normal affect, normal mood - Skin Skin exam: Present: normal color, warm, dry Results - Labs CBC & BMP: 06/09/17 08:32 06/09/17 08:32 Lab Results: I have reviewed the past 24 hour labs Specialty Discharge - Follow Up or Referrals Follow up with: Estrada Matt MD [Physician] - <Atif Fulton - Last Filed: 06/09/17 22:06> Exam (Progress Note) - Constitutional Vitals: Period Temp Pulse Resp BP Sys/Prajapati Pulse Ox Last 24 Hr 97.6 F-98.6 F 76-97 16-20 108-133/58-76 98-100 Results - Labs CBC & BMP: 06/09/17 08:32 06/09/17 08:32
--- NOTE | 2017-06-09 11:22 | Pathology Report from [facility] ---
VHX ACCESSION # : [id number] PATIENT NAME : Venkat Young ORDERING DR : Estrada Matt MD CLINICAL HX: Cholelithiasis POST-OP DX: Same SPECIMEN INFO: Gallbladder with stones GROSS DESCRIPTION: Received in formalin labeled VENKAT YOUNG consists of a gallbladder in two pieces measuring together 5.1 x 3 cm. The mucosal is erythematous and slightly roughened. The gallbladder wall measures up to 0.2 cm. The mucosa is focally ulcerated and erythematous. Received separately in the specimen container are six fragments of lobulated brown gold stones measuring collectively 1.5 x 1.6 cm. Physician Support Coordinator sections are submitted in one cassette. DIAGNOSIS FOR VENKAT YOUNG: GALLBLADDER, CHOLECYSTECTOMY: Chronic cholecystitis. Cholelithiasis. COLLECTED DATE: 06/08/2017 VHX REPORT DATE: 06/09/2017 ELECTRONICALLY SIGNED BY: Missael Zapata M.D. 06/09/2017 - 9:18:00 LIZZ
--- NOTE | 2017-06-09 13:11 | Hospitalist Progress Note ---
Assessment and Plan (1) History of ETOH abuse Status: Chronic Assessment and plan: 1)alcoholism- no sign of DTs at this time. Use Librium or ativan prn. on folate and thiamine. 2)cholecystitis, choledocholithiasis and cholelithiasis- s/p open cholecystectomy. Has Ttube in common bile duct and Dr Matt plans cholangiogram in the morning. WBC now up to 12. recheck in am. afebrile. 3)hypokalemia- replaced. Current Visit: Yes (2) Alcoholic hepatitis with ascites Status: Acute Current Visit: Yes (3) Hyperbilirubinemia Status: Acute Current Visit: Yes (4) Hypokalemia Status: Acute Current Visit: Yes (5) Cholelithiasis with choledocholithiasis Status: Acute Current Visit: Yes (6) Jaundice Status: Acute Current Visit: Yes Hospitalist: Subjective Interval history: Mr Young is doing well this morning. He is tolerating a regular diet. He denies nausea. He is breathing comfortably. Exam - Constitutional Vitals: Period Temp Pulse Resp BP Sys/Prajapati Pulse Ox Last 24 Hr 97.0 F-98.6 F 68-97 16-20 96-133/52-80 95-100 General appearance: no acute distress, over weight - Eye Eye exam: Present: EOMI. Absent: scleral icterus - Respiratory Respiratory exam: Present: clear to auscultation bilaterally - Cardiovascular Cardiovascular exam: Present: regular rate and rhythm - GI/Abdominal GI/Abdominal exam: Present: normal bowel sounds, tenderness (expected post op tenderness), soft - Extremities Exam Extremities exam: Absent: edema Results - Labs CBC & BMP: 06/09/17 08:32 06/09/17 08:32 Lab Results: I have reviewed the past 24 hour labs Quality Measures - VTE Contraindication to Pharmacological VTE Prophylaxis: High Risk of Bleeding Specialty Discharge - Follow Up or Referrals Follow up with: Estrada Matt MD [Physician] -
[2017-06-10] MEDS: KETOROLAC 30 MG/1 ML VIAL IV SCH ×4 (05:00→20:32)
[2017-06-10 06:08] LABS: Basophils % 0.4 % (0.0-0.8); Eosinophils # 0.2 10*3/uL (0.0-0.87); Hematocrit 32.4 VOL% (42.0-52.0); Hemoglobin 10.8 GM/DL (14.0-18.0); Immature Granulocytes Absolute 0.19 #; Lymphocytes # 1.1 10*3/uL (1.4-4.0); Lymphocytes % 11.8 % (21.2-54.2); Mean Corpuscular HGB Conc 33.3 GM/DL (32-36); Mean Corpuscular Hemoglobin 31 PG (27-34); Mean Corpuscular Volume 93.1 FL (87-102); Mean Platelet Volume 10.8 FL (9.6-12.0); Monocytes # 1.1 10*3/uL (0.11-0.8); Monocytes % 11.8 % (1.7-12.7); Neutrophils # 6.7 10*3/uL (1.4-7.4); Platelet Count 361 T/CUMM (130-400); Red Blood Count 3.48 MC/CUMM (3.8-5.5); Red Cell Distribution Width 15.5 % (9.3-17.3); White Blood Count 9.4 T/CUMM (4-12)
[2017-06-10 06:50] LABS: Albumin 1.9 G/DL (3.4-5.0); Calcium 8.9 MG/DL (8.5-10.1); Osmolality,Calculated 277.4 MOS/KG (273-304); Total Protein 5.5 G/DL (6.4-8.3)
[2017-06-10 06:52] LABS: Bilirubin,Total 12.5 MG/DL (0.2-1.0)
--- NOTE | 2017-06-10 07:14 | Event Note ---
Patient is doing well overall. His T-tube drainage is minimal but there is some mild tenderness in the OG drain. He is tolerating his diet with no nausea or vomiting. He is scheduled for cholangiogram through the T-tube today. His bilirubin is downtrending appropriately.
[2017-06-10] MEDS: THIAMINE 200 MG/2 ML VIAL IV SCH (09:34)
[2017-06-10] MEDS: CHOLESTYRAMINE 4 GM PACK PO SCH (09:35)
[2017-06-10] MEDS: PANTOPRAZOLE 40 MG VIAL IV SCH (09:35)
[2017-06-10] MEDS: FOLIC ACID INJ 1 MG in SYRINGE 1 EACH IV SCH (09:36)
--- NOTE | 2017-06-10 10:57 | Interventional Radiology Rpt ---
IR cholangiogram via catheter Clinical Information: T-tube, prior choledocholithiasis Comparison: Intraoperative fluoroscopy 06/07/2017 and 06/08/2017 Findings: Indwelling catheter tube is noted over the right upper quadrant. Surgical drain material and multiple surgical richard are also noted. 20 mL of Omnipaque 240 was injected into the patient's indwelling drainage catheter. This is noted to opacify the intrahepatic and extrahepatic biliary ducts. No retained stones are visualized. There is no evidence of extravasation. Opacification of the duodenum is also noted. No acute abnormality otherwise identified. Impression: Indwelling biliary drainage catheter with no evidence of residual/recurrent stricture or bile leak. No filling defects are identified to suggest retained stones. PROCEDURE INTERPRETED AT [facility] DEPARTMENT OF RADIOLOGY Final Report Signed by: Mack Rolle
--- NOTE | 2017-06-10 15:34 | Hospitalist Progress Note ---
Assessment and Plan (1) Cholelithiasis with choledocholithiasis Status: Acute Assessment and plan: s/p open cholecystectomy, T-tube and OG drain in place. He had a cholangiogram through the T-tube today. Plan Continue with Surgery's recommendations. Current Visit: Yes (2) Alcoholic hepatitis with ascites Status: Acute Assessment and plan: Follow LFTs Current Visit: Yes (3) History of ETOH abuse Status: Chronic Assessment and plan: continue with DT prophylaxis, Use Librium and Ativan prn, continue folate and thiamine Current Visit: Yes (4) Jaundice Status: Acute Assessment and plan: continue with LFTs. Current Visit: Yes Hospitalist: Subjective Interval history: Patient had a cholangiogram through the T-tube today because his T-tube drainage was minimal but there is some mild tenderness in the OG drain. Exam - Constitutional Vitals: Period Temp Pulse Resp BP Sys/Prajapati Pulse Ox Last 24 Hr 97.0 F-98.9 F 60-80 16-18 105-129/58-82 100-100 General appearance: no acute distress - Head Head exam: Present: normal inspection - Respiratory Respiratory exam: Present: clear to auscultation bilaterally - Cardiovascular Cardiovascular exam: Present: regular rate and rhythm - GI/Abdominal GI/Abdominal exam: Present: normal bowel sounds, other (T-tube and OG drain in place draining minimally) - Extremities Exam Extremities exam: Present: normal inspection Results - Labs CBC & BMP: 06/10/17 05:42 06/10/17 05:42 Lab Results: I have reviewed the past 24 hour labs Quality Measures - VTE Contraindication to Pharmacological VTE Prophylaxis: High Risk of Bleeding Specialty Discharge - Follow Up or Referrals Follow up with: Estrada Matt MD [Physician] -
[2017-06-11] MEDS: KETOROLAC 30 MG/1 ML VIAL IV SCH ×3 (02:30→14:43)
[2017-06-11 06:59] LABS: Hematocrit 31.1 VOL% (42.0-52.0); Hemoglobin 10.7 GM/DL (14.0-18.0); Red Blood Count 3.32 MC/CUMM (3.8-5.5); White Blood Count 8.8 T/CUMM (4-12)
[2017-06-11 07:00] LABS: Basophils # 0.1 10*3/uL (0.0-0.2); Basophils % 0.7 % (0.0-0.8); Eosinophils # 0.4 10*3/uL (0.0-0.87); Eosinophils % 4.2 % (0.00-10.9); Immature Granulocytes % 3.9 %; Immature Granulocytes Absolute 0.34 #; Lymphocytes # 1.5 10*3/uL (1.4-4.0); Lymphocytes % 17.1 % (21.2-54.2); Mean Corpuscular HGB Conc 34.4 GM/DL (32-36); Mean Corpuscular Hemoglobin 32 PG (27-34); Mean Corpuscular Volume 93.7 FL (87-102); Mean Platelet Volume 10.3 FL (9.6-12.0); Monocytes % 11.4 % (1.7-12.7); Neutrophils # 5.5 10*3/uL (1.4-7.4); Neutrophils % 62.7 % (38.7-73.9); Platelet Count 386 T/CUMM (130-400); Red Cell Distribution Width 15.2 % (9.3-17.3)
[2017-06-11 07:34] LABS: Albumin 1.8 G/DL (3.4-5.0); Bilirubin,Total 9.3 MG/DL (0.2-1.0); Calcium 8.7 MG/DL (8.5-10.1); Osmolality,Calculated 277.4 MOS/KG (273-304); Potassium 3.7 MMOL/L (3.5-5.1); Total Protein 5.6 G/DL (6.4-8.3)
--- NOTE | 2017-06-11 08:16 | Event Note ---
This patient is doing well following open cholecystectomy with common bile duct exploration and T-tube placement. His cholangiogram yesterday was negative and his T-tube was clamped. He is doing well. His OG drain is serosanguineous. He is tolerating regular diet. Vital signs are unremarkable labs look stable with decreasing bilirubin. From my standpoint the patient can go home. He needs to leave his T-tube clamped until he sees me back in clinic in 2 weeks and continue his OG drain during that time as well. We will see him back at that time to remove richard and start moving drains.
[2017-06-11] MEDS: PANTOPRAZOLE 40 MG VIAL IV SCH (09:34)
[2017-06-11] MEDS: THIAMINE 200 MG/2 ML VIAL IV SCH (09:36)
[2017-06-11] MEDS: CHOLESTYRAMINE 4 GM PACK PO SCH (09:38)
[2017-06-11] MEDS: FOLIC ACID INJ 1 MG in SYRINGE 1 EACH IV SCH (09:38)
--- NOTE | 2017-06-11 10:25 | Discharge Summary ---
<Wandy Joshi - Last Filed: 06/11/17 10:19> Hospital Course - Hospital Course Hospital Course: 26-year-old male with history significant for alcohol abuse presenting admitted by the hospitalist service from [facility] on 06/04/2017 with alcoholic hepatitis with ascites, hyperbilirubinemia, and hypokalemia. GI was consulted and Dr. Fulton took him for ERCP on 06/07/2017 where he found choledocholithiasis status post successful ERCP with sphincterotomy. Dr. Matt from surgery was consulted and patient was taken to the operating room on 2016 where he performed a laparoscopic converted to an open cholecystectomy with open common bile duct exploration with stone removal and intraoperative cholangiogram with T-tube placement. Dr. Lazo came in for intraoperative assistance. Patient's bilirubin is down to 9.3 and T-tube cholangiogram was negative. His T-tube has been clamped and OG drain will stay intact. These will be left in place and patient will follow up with Dr. Matt in his clinic in 2 weeks for removal. Patient will be given p.o. narcotics on discharge. Patient also had thorough education on alcohol cessation by each separate physician. Care coordination, chart review, completed discharge paperwork took approximately 40 minutes. - Time spent with patient Time with patient DS: Greater than 30 minutes Diagnosis - Discharge Diagnosis (1) Alcoholic hepatitis with ascites Status: Chronic (2) History of ETOH abuse Status: Chronic (3) Hyperbilirubinemia Status: Acute (4) Hypokalemia Status: Resolved (5) Cholelithiasis with choledocholithiasis Status: Resolved (6) Jaundice Status: Chronic Specialty Discharge - Follow Up or Referrals Follow up with: Estrada Matt MD [Physician] - 06/28/17 2:45 pm Discharge Plan - Discharge Data Disposition: Disch To Home/Self Care Condition at Discharge: Stable Discharge Diet: advance to your usual diet Activity: increase activity as tolerated Hygiene: may shower Driving: not until seen by doctor Contact your physician if you experience:: fever over 101, Nausea/Vomiting Wound / Dressing Care Instructions: Keep T-tube clamped and protect from being pulled out. Keep OG drain intact. Give patient OG instructions. Okay to shower with mild soap and water, pat dry, okay to leave incision open to air - Discharge Medications New HYDROcodone/ACETAMIN 7.5-325 [[place] 7.5-325] 1 - 2 tablet PO Q4H PRN #45 tablet PRN Reason: Pain Moderate (4-7) - Follow Up or Referral Follow Up: Estrada Matt MD [Physician] - 06/28/17 2:45 pm - Forms/Instructions Instructions: Laparoscopic Cholecystectomy (DC), Abuse of Alcohol (DC), Ascites (DC), Bart J-P Drain Care Instructions Additional Discharge Instructions: T-tube and drain care instructions Exam - Constitutional Vitals: Period Temp Pulse Resp BP Sys/Prajapati Pulse Ox Last 24 Hr 97.8 F-99.0 F 61-80 18-20 115-126/59-82 97-100 Exam: 26-year-old white male, no acute distress, alert and oriented Chest clear CV regular rate and rhythm Abdomen soft, appropriately tender, T-tube intact and clamped, OG drain intact with minimal drainage, incision looks good Extremities no edema Discharge Results Labs on day of discharge: Labs from last 24 hours 06/11/17 06/11/17 06/11/17 06:44 06:44 05:55 WBC 8.8 RBC 3.32 L Hgb 10.7 L Hct 31.1 L MCV 93.7 MCH 32 MCHC 34.4 RDW 15.2 Plt Count 386 MPV 10.3 Neut % (Auto) 62.7 Lymph % (Auto) 17.1 L Rankin % (Auto) 11.4 Eos % (Auto) 4.2 Baso % (Auto) 0.7 Neut # (Auto) 5.5 Lymph # (Auto) 1.5 Rankin # (Auto) 1.0 H Eos # (Auto) 0.4 Baso # (Auto) 0.1 Immature Gran % 3.9 Nucleated RBC % 0.0 Immature Gran # 0.34 Nucleated RBCs # 0.00 Immature Plt Fraction 0.0 Sodium 140 Potassium 3.7 Chloride 107 Carbon Dioxide 27 Anion Gap 9.7 BUN 9 Creatinine 0.60 L GFR Calculation 162 BUN/Creatinine Ratio 15.00 Glucose 104 POC Glucose 118 H Calculated Osmolality 277.4 Calcium 8.7 Total Bilirubin 9.30 H AST 65 H ALT 59 Alkaline Phosphatase 362 H Total Protein 5.6 L Albumin 1.8 L Globulin 3.8 H Albumin/Globulin Ratio 0.4 L 06/10/17 06/10/17 06/10/17 23:32 16:20 11:37 WBC RBC Hgb Hct MCV MCH MCHC RDW Plt Count MPV Neut % (Auto) Lymph % (Auto) Rankin % (Auto) Eos % (Auto) Baso % (Auto) Neut # (Auto) Lymph # (Auto) Rankin # (Auto) Eos # (Auto) Baso # (Auto) Immature Gran % Nucleated RBC % Immature Gran # Nucleated RBCs # Immature Plt Fraction Sodium Potassium Chloride Carbon Dioxide Anion Gap BUN Creatinine GFR Calculation BUN/Creatinine Ratio Glucose POC Glucose 107 H 138 H 124 H Calculated Osmolality Calcium Total Bilirubin AST ALT Alkaline Phosphatase Total Protein Albumin Globulin Albumin/Globulin Ratio DS: Provider Date of admission: 06/04/17 03:07 Primary care physician: Cristy Moore MD Attending physician on admission: Bobby Lynn MD Consults: 06/04/17 03:07 Consult to Physician [CONS] Routine Comment: ETOH hepatitis, Hyperbilirubemia Consulting Provider: Atif Fulton Consulting Provider Notified: Yes When should Consulting Provider be notified: Now Consult to Specialist Group: Gastroenterology When should Consulting Provider be notified: In am Person Notified: trevor called Date Notified: 06/04/17 Time Notified: 08:25 06/04/17 15:13 Consult to Physician [CONS] Routine Comment: choledocholithiasis on MRI abdomen Consulting Provider: Estrada Matt Consulting Provider Notified: Yes When should Consulting Provider be notified: Now Person Notified: Dr Matt called Date Notified: 06/04/17 Time Notified: 15:51 Discharging clinician: LIZA Mcfarlane Expected date of discharge: 06/11/17 <Scarlett Xiao - Last Filed: 06/11/17 11:41> Hospital Course - Time spent with patient Time with patient DS: Greater than 30 minutes Diagnosis - Discharge Diagnosis (1) Cholelithiasis with choledocholithiasis Status: Resolved (2) Alcoholic hepatitis with ascites Status: Chronic (3) History of ETOH abuse Status: Chronic (4) Jaundice Status: Chronic Exam - Constitutional General appearance: no acute distress, other (juandiced) - Head Head exam: Present: normal inspection - Respiratory Respiratory exam: Present: clear to auscultation bilaterally - Cardiovascular Cardiovascular exam: Present: regular rate and rhythm - GI/Abdominal GI/Abdominal exam: Present: normal bowel sounds - Extremities Exam Extremities exam: Present: normal inspection
[2017-06-11 11:00] VITALS: BP 115/65
--- NOTE | 2017-06-16 08:32 | Physician Query Form ---
CLICK EDIT DOCUMENT TO SELECT QUERY ANSWER --> OK --> SIGN Bethanie Rodríguez RN, CCDS Certified Clinical [employer] W) [phone] (f) [phone] [email or web address]: Make your selection(s) from the choices in EACH section by typing an "x" and enter comments in the comment section. Please use your independent medical judgment in providing your response. This request does not imply that any particular answer is desired or expected. CLINICAL INDICATORS: (Providers should not edit this section) The below diagnosis was documented in the record, but is not consistently noted in subsequent documentation. The medical record indicates that the patient was admitted with Cholelithiasis, ER impression mentions pancreatitis, lipase of 449# and the patient was placed on Levofloxacin. Diagnosis: PANCREATITIS Please clarify the following: ( x) The above diagnosis was monitored, evaluated, and/or treated and is a confirmed diagnosis ( ) The above diagnosis was ruled out ( ) The above diagnosis is still a likely, suspected, probable diagnosis ( ) Other, please specify: ( ) Clinically unable to determine COMMENTS: PLEASE ALSO DOCUMENT RESPONSE IN PROGRESS NOTES AND/OR DISCHARGE SUMMARY Use of terms such as suspected, likely, or probable (associated with a specific diagnosis that is being evaluated, monitored, or treated as if it exists) are acceptable and can be restated in the discharge summary if not ruled out. MTDD
== END 2017-06-11 14:15 | disposition home or self-care (01) | DRG 411 ==
LOC: N.ED 21:43 → SUATTDRO 06-04 03:07 → N.EDINP 06-04 03:07 → N.3E 06-04 03:58
PROVIDERS: ADMIT Internal Medicine; ATTEND Internal Medicine
PROC: ERCPWSP (ICD-10-PCS; 2017-06-07 11:50)
PROC: LAPCHOL (2017-06-08 10:13)